=== PATIENT | male | born 1965 | race Caucasian/White ===

== ENCOUNTER 2016-10-14 08:31 | Day surgery (SDC) | payer BC, OTHER ==
[2016-10-12 13:06] VITALS: BMI 44.0
[~2016-10-14] VITALS: Ht 180.3 cm; Wt 142.7 kg
[~2016-10-14 08:31] MED LIST: APIX1TAB3 PO; ASPI-435 PO; CLINDAMYCIN IV 900 MG in DEXTROSE 5% ADD-VANTAGE 100ML 100 ML IV SCH; HYDR200T5 PO; IRON5TAB PO; ISOS30TA3 PO; LACTATED RINGER'S 1000ML 1,000 ML IV SCH; LISI-729 PO; METO50TA16 PO; MULT-506 PO; NTRGSL/4 UT; SIMV40TA2 PO
[2016-10-14 09:06] VITALS: BP 161/98; PULSE 85; TEMP 36.9; O2SAT 97; Ht 180.3 cm; Wt 142.7 kg
--- NOTE | 2016-10-14 09:20 | History and Physical ---
History & Physical Date Oct 14, 2016. History of Present Illness The patient is a 51 year old male with h/o colon cancer- for access port Past Medical/Surgical History h/o CVA, anticoagulation, Htn, CAD, Lupus, coronary stent placement Additional History Endocrine Disorder: No Kidney Disease: No Hypertension: Yes Heart Disease: Yes Bleeding Tendencies: Yes Allergies Coded Allergies: Penicillins (Verified Allergy, Mild, TONGUE AND MOUTH SWELLS, 10/14/16) Home Medications Scheduled Apixaban (Eliquis), 5 MG PO BID Aspirin (Aspirin 81), 81 MG PO QAM Hydroxychloroquine Sulfate (Plaquenil), 200 MG PO BID Iron-Vitamin C (Iron 100/C), 1 TAB PO QPM Isosorbide Mononitrate Ext Rel (Imdur Ext Rel), 30 MG PO QAM Lisinopril (Zestril), 5 MG PO BID Metoprolol Tartrate (Lopressor) (Lopressor), 50 MG PO BID Multivitamin (Multivitamin), 1 TAB PO QAM Nitroglycerin (Nitrostat), 0.4 MG UT PRN Simvastatin (Zocor), 40 MG PO QPM Physical Examination Skin: warm/dry Eyes: normal inspection Head: normocephalic Respiratory/Chest: no respiratory distress Cardiovascular: regular rate, rhythm Extremities: normal inspection Neurologic/Psych: alert Diagnosis colon cancer- for access port Plan of Treatment port placement
[2016-10-14] MEDS ORDERED: PROPOFOL IV EMULSION 10 MG/ML 20 ML VIAL IV ONE (10:11)
[2016-10-14] MEDS ORDERED: FENTANYL CITRATE INJ 50 MCG/1 ML 2 ML VIAL ONE (10:11)
[2016-10-14] MEDS ORDERED: MIDAZOLAM HCL 1 MG/ML 2ML VIAL ONE ×3 (10:11→11:32)
[2016-10-14] MEDS ORDERED: HYDR-5688 PO (11:33)
--- NOTE | 2016-10-14 11:35 | Discharge Instructions ---
Discharge Instructions Visit Reason for Visit: Colon Cancer Discharge Discharge Diagnosis / Problem: A-port Discharge Goals Goal(s): Improve disease control Activity Recommendations Activity Limitations: per Instructions/Follow-up section Shower/Bathe: tomorrow Driving or Machine Use: do not drive if you have taken [place] Anesthesia . Post Anesthesia Instructions: If you have had General Anesthesia or IV Sedation: * Do not drive today. * Resume driving when surgeon permits. * Do not make important decisions or sign legal documents today. * Call surgeon for: 1. Temperature elevations greater than 101 degrees F. 2. Uncontrollable pain. 3. Excessive bleeding. 4. Persistent nausea and vomiting. 5. Medication intolerance (nausea, vomiting or rash). * For nausea and vomiting use only clear liquids such as: tea, soda, bouillon until nausea subsides, then gradually increase diet as tolerated. * If you have any concerns or questions, call your surgeon's office. If physician is unavailable and it is an emergency, call 911 or go to the nearest emergency room. . Instructions / Follow-Up Instructions / Follow-Up Dr. Simons's office in 2 weeks for suture removal Restart Eliquis on Wednesday Diet Recommendations Recommended Home Diet: no limitations Pending Studies Studies pending at discharge: no Medical Emergencies . Who to Call and When: Medical Emergencies: If at any time you feel your situation is an emergency, please call 911 immediately. . Non-Emergent Contact Non-Emergency issues call your: Surgeon Call Non-Emergent contact if: you have a fever, temperature is above 101.5, wound has increased redness, wound has increased pain . . "Provider Documentation" section prepared by Gage Alonzo.
[2016-10-14] MEDS ORDERED: LACTATED RINGER'S 1000ML 1,000 ML IV PRN (11:38)
[2016-10-14] MEDS ORDERED: ONDANSETRON INJ 2 MG/ML 2 ML VIAL IV PRN ×2 (11:45→12:00)
[2016-10-14] MEDS ORDERED: FENTANYL CITRATE INJ 50 MCG/1 ML 2 ML VIAL IV PRN (11:45)
[2016-10-14] MEDS ORDERED: LACTATED RINGER'S 1000ML 1,000 ML IV SCH (11:57)
[2016-10-14] MEDS ORDERED: MoRPHine SULFATE 2 MG/ML CARP IV PRN (12:00)
[2016-10-14] MEDS ORDERED: HYDROCODONE/ACETAMOPHEN 5/325MG TAB PO PRN ×3 (12:00→12:30)
[2016-10-14] MEDS ORDERED: CEFAZOLIN SOD 1 GM VIAL IRRIG ONE (12:04)
[2016-10-14] MEDS ORDERED: HEPARIN SOD (PORCINE) 1000 UNIT/ML 10 ML VIAL FLUSH ONE (12:04)
[2016-10-14] MEDS ORDERED: LIDOCAINE HCL 1% 20 ML VIAL INJ ONE (12:04)
--- NOTE | 2016-10-14 12:20 | [facility] Operative Report ---
Operative Report Operative Date Oct 14, 2016. Pre-Operative Diagnosis History of Colon Cancer Post-Operative Diagnosis same Procedure(s) Performed port Surgeon Dr. Faustino Simons Director Electronics Surgeon(s) [place] Student Estimated Blood Loss 10mL Findings placed via Lt cephalic vein Specimens None, per Surgeon Anesthesia local/ sedation Complication(s) None Disposition Recovery Room / PACU I attest to the content of the Intraoperative Record and any orders documented therein. Any exceptions are noted below.
--- NOTE | 2016-10-14 12:35 | Anesthesiology Progress Note ---
Anesthesia Post Op Note Date & Time Oct 14, 2016 at 12:35 Vital Signs Pain Intensity: 0 Vital Signs Past 12 Hours Date Time Temp Pulse Resp B/P Pulse Ox O2 Delivery O2 Flow Rate FiO2 10/14/16 12:25 76 18 107/72 94 Room Air 10/14/16 12:17 36.3 75 18 115/67 96 Room Air 10/14/16 09:06 36.9 85 17 161/98 97 Room Air Notes Mental Status: alert / awake / arousable, participated in evaluation Pt Amnestic to Procedure: Yes Nausea / Vomiting: adequately controlled Pain: adequately controlled Airway Patency, RR, SpO2: stable & adequate BP & HR: stable & adequate Hydration State: stable & adequate Anesthetic Complications: no major complications apparent
--- NOTE | 2016-10-14 12:42 | DIAGNOSTIC IMAGING REPORT ---
CHEST ONE VIEW PORTABLE CLINICAL HISTORY: Port placement. COMPARISON STUDY: No previous studies for comparison. FINDINGS: No pneumothorax is identified. The tip of the left subclavian Eeupnx-k-Ghzn projects over the distal SVC. Catheter appears intact. There is moderate elevation of the right hemidiaphragm. There is borderline cardiomegaly. Pulmonary vascularity is normal. IMPRESSION: No pneumothorax following placement of a left subclavian Cvnafz-t-Fzgu. Electronically signed by: Santiago De Luna M.D. 10/14/2016 12:40 PM
[2016-10-14 12:45] VITALS: BP 136/65; PULSE 76; TEMP 36.9; O2SAT 99
--- NOTE | 2016-10-14 13:09 | OPERATIVE REPORT ---
DATE OF OPERATION: 10/14/2016 NAME OF OPERATION: Infusaport placement. PREOPERATIVE DIAGNOSIS: Colon cancer. POSTOPERATIVE DIAGNOSIS: Same. STAFF SURGEON: Dr. Simons. ANESTHESIA: 1% plain lidocaine with sedation. PROCEDURE: The patient was brought into the operating room and placed on the operating table in a supine position. His chest was prepped and draped in usual fashion. Skin and subcutaneous tissue over the left deltopectoral groove were anesthetized. Incision made, carrying dissection down identifying the cephalic vein which was ligated distally. It was then opened. A catheter was then passed into the superior vena cava under fluoroscopy. It was aspirated and flushed with heparinized solution. A pocket was fashioned in the chest wall. The port was attached to the catheter, placed into the pocket and secured to the chest wall using 3-0 Prolene suture. The port had been aspirated and flushed with heparinized solution. The wound was irrigated with antibiotic solution. Then the subcutaneous tissue reapproximated using 2-0 plain catgut suture, then the skin reapproximated using 4-0 nylon suture. The patient was transferred to recovery room in stable condition. I attest to the content of the Intraoperative Record and any orders documented therein. Any exceptio ns are noted below.
[2016-10-14 13:18] VITALS: BP 112/68; PULSE 72; TEMP 36.9; O2SAT 95
== END 2016-10-14 13:25 | disposition home or self-care (01) ==
LOC: C.ACU 08:31
PROVIDERS: ATTEND Surgery
DX: C18.9 Malignant neoplasm of colon, unspecified (principal); Z86.73 Personal history of transient ischemic attack (TIA), and cerebral infarction without residual deficits; I10 Essential (primary) hypertension; I25.10 Atherosclerotic heart disease of native coronary artery without angina pectoris; Z95.5 Presence of coronary angioplasty implant and graft; Z88.0 Allergy status to penicillin

== ENCOUNTER → 2016-10-28 | Outpatient (CLI) | payer BC ==
[~2016-10-28] MED LIST changes: -APIX1TAB3 PO; -CLINDAMYCIN IV 900 MG in DEXTROSE 5% ADD-VANTAGE 100ML 100 ML IV SCH; +HYDR-5688 PO; -LACTATED RINGER'S 1000ML 1,000 ML IV SCH
[2016-10-28 13:07] LABS: BASO ABS # 0.06 K/uL (0-0.2); COMPLETE YES; EOS % 4.7 %; HEMATOCRIT 40.4 % (42-52); IG% 0.3 %; LYMPH % 11.7 %; LYMPH ABS # 0.68 K/uL (1.2-3.4); MEAN CELL VOLUME 81.8 fL (80-100); MEAN CORPUSCULAR HEMOGLOBIN 27.1 pg (25-34); MEAN CORPUSCULAR HGB CONC 33.2 g/dl (32-36); MEAN PLATELET VOLUME 9.7 fL (7.4-10.4); MONO % 10.7 %; NEUT % 71.6 %; PLATELET COUNT 114 K/uL (130-400); RED BLOOD COUNT 4.94 M/uL (4.7-6.1)
[2016-10-28 13:31] LABS: ALT/SGPT 37 U/L (12-78); AST/SGOT 25 U/L (15-37); BLOOD UREA NITROGEN 18 mg/dl (7-18); BUN/CREATININE RATIO 13.7 (10-20); CALCIUM 8.8 mg/dl (8.5-10.1); CARBON DIOXIDE 27 mmol/L (21-32); CHLORIDE 105 mmol/L (98-107); GLUCOSE 109 mg/dl (70-99); SODIUM 141 mmol/L (136-145)
[2016-10-28 13:33] LABS: ALB/GLOB RATIO 1.1 (0.9-2); ALKALINE PHOSPHATASE 77 U/L (45-117)
== END | disposition home or self-care (01) ==
LOC: C.LABMFLN 08:34
PROVIDERS: ATTEND Internal Medicine Hematology & Oncology
DX: C18.2 Malignant neoplasm of ascending colon (principal)

== ENCOUNTER → 2016-11-11 | Outpatient (CLI) | payer BC, OTHER ==
[2016-11-11 13:35] LABS: ALT/SGPT 43 U/L (12-78); BLOOD UREA NITROGEN 15 mg/dl (7-18); BUN/CREATININE RATIO 12.8 (10-20); CALCIUM 8.6 mg/dl (8.5-10.1); CARBON DIOXIDE 25 mmol/L (21-32); CHLORIDE 107 mmol/L (98-107); GLUCOSE 103 mg/dl (70-99); POTASSIUM 3.9 mmol/L (3.5-5.1); SODIUM 142 mmol/L (136-145)
[2016-11-11 13:38] LABS: ALB/GLOB RATIO 0.9 (0.9-2); ALKALINE PHOSPHATASE 79 U/L (45-117); AST/SGOT 40 U/L (15-37)
[2016-11-11 13:41] LABS: HEMATOCRIT 40.9 % (42-52); MEAN CELL VOLUME 82.6 fL (80-100); MEAN CORPUSCULAR HEMOGLOBIN 27.5 pg (25-34); MEAN CORPUSCULAR HGB CONC 33.3 g/dl (32-36); RED BLOOD COUNT 4.95 M/uL (4.7-6.1); WHITE BLOOD COUNT 4.33 K/uL (4.8-10.8)
[2016-11-11 13:50] LABS: URINE PROTIEN/CREAT RATIO 0.2 (0-0.2)
[2016-11-11 13:52] LABS: URINE APPEARANCE CLOUDY (CLEAR); URINE BILIRUBIN NEG (NEG); URINE COLOR DK YELLOW; URINE NITRITE NEG (NEG); URINE SPECIFIC GRAVITY 1.022 (1.000-1.030); UROBILINOGEN NEG (NEG)
[2016-11-11 14:01] LABS: MANUAL MICROSCOPIC REQUIRED? NO; REVIEW REQ? NO
[2016-11-11 14:16] LABS: MEAN PLATELET VOLUME 10.1 fL (7.4-10.4); PLATELET COUNT 90 K/uL (130-400)
[2016-11-11 14:17] LABS: BASO % 1.6 %; BASO ABS # 0.07 K/uL (0-0.2); COMPLETE YES; IG% 0.2 %; LYMPH % 10.9 %; LYMPH ABS # 0.47 K/uL (1.2-3.4); MONO % 12.5 %; NEUT % 71.8 %; PLT ESTIMATE DECREASED
== END | disposition home or self-care (01) ==
LOC: C.LABMFLN 14:05
PROVIDERS: ATTEND Nurse Practitioner
DX: C18.2 Malignant neoplasm of ascending colon (principal); N17.9 Acute kidney failure, unspecified; D68.61 Antiphospholipid syndrome

== ENCOUNTER → 2017-01-20 | Outpatient (CLI) | payer BC ==
[2017-01-20 12:57] LABS: BASO % 1.3 %; BASO ABS # 0.06 K/uL (0-0.2); COMPLETE YES; IG% 0.4 %; LYMPH % 14.7 %; LYMPH ABS # 0.69 K/uL (1.2-3.4); MEAN CELL VOLUME 89.9 fL (80-100); MEAN CORPUSCULAR HEMOGLOBIN 30.5 pg (25-34); MEAN CORPUSCULAR HGB CONC 33.9 g/dl (32-36); MONO % 17.2 %; NEUT % 63.4 %; PLATELET COUNT 115 K/uL (130-400); RED BLOOD COUNT 4.56 M/uL (4.7-6.1)
[2017-01-20 14:07] LABS: ALT/SGPT 41 U/L (12-78); BLOOD UREA NITROGEN 16 mg/dl (7-18); BUN/CREATININE RATIO 13.7 (10-20); CARBON DIOXIDE 31 mmol/L (21-32); CHLORIDE 107 mmol/L (98-107); GLUCOSE 109 mg/dl (70-99); POTASSIUM 4.2 mmol/L (3.5-5.1); SODIUM 143 mmol/L (136-145)
[2017-01-20 14:09] LABS: ALKALINE PHOSPHATASE 114 U/L (45-117); AST/SGOT 47 U/L (15-37)
[2017-01-20 14:25] LABS: CALCIUM 9.1 mg/dl (8.5-10.1)
== END | disposition home or self-care (01) ==
LOC: C.LABMFLN 09:11
PROVIDERS: ATTEND Internal Medicine Hematology & Oncology
DX: C18.2 Malignant neoplasm of ascending colon (principal)

== ENCOUNTER → 2017-03-01 | Outpatient (CLI) | payer BC ==
[2017-03-01 13:18] LABS: BASO % 1.7 %; BASO ABS # 0.06 K/uL (0-0.2); COMPLETE YES; EOS % 3.6 %; HEMATOCRIT 39.3 % (42-52); IG% 0.3 %; LYMPH % 16.5 %; MEAN CELL VOLUME 97.8 fL (80-100); MEAN CORPUSCULAR HEMOGLOBIN 33.6 pg (25-34); MEAN CORPUSCULAR HGB CONC 34.4 g/dl (32-36); MEAN PLATELET VOLUME 10.2 fL (7.4-10.4); MONO % 15.7 %; NEUT % 62.2 %; PLATELET COUNT 105 K/uL (130-400); RED BLOOD COUNT 4.02 M/uL (4.7-6.1); WHITE BLOOD COUNT 3.63 K/uL (4.8-10.8)
== END | disposition home or self-care (01) ==
LOC: C.LABMFLN 10:59
PROVIDERS: ATTEND Internal Medicine Hematology & Oncology
DX: C18.2 Malignant neoplasm of ascending colon (principal)

== ENCOUNTER → 2017-03-17 | Outpatient (CLI) | payer BC ==
[2017-03-17 14:37] LABS: URINE PROTIEN/CREAT RATIO 0.1 (0-0.2); URINE TOTAL PROTEIN 13.3 mg/dl (0-11.9)
--- NOTE | 2017-04-02 12:08 | CODING QUERY MEDICAL NECESSITY ---
SUPPORTING DIAGNOSIS NEEDED Dr. Mora, A supporting diagnosis is required for the test/procedure performed on this patient in order for us to be reimbursed by the patient's insurance. Please provide a supporting diagnosis for the following test/procedure listed below next to the test name along with your signature. *If there is no additional diagnosis for this patient that would support the following test/procedure please document that below next to the test/procedure. Test(s)/Procedure(s) that require a supporting diagnosis: * ([id number]) VITAMIN D ASSAY DIAGNOSIS: DATE OF SERVICE: 03/29/17 Provider Signature: Date: Thank you Gage Ruelas [place] Information Management Once completed, please kindly fax back to [phone] For questions please call [phone]
== END | disposition home or self-care (01) ==
LOC: C.LABMFLN 11:03
PROVIDERS: ATTEND Internal Medicine
DX: N28.9 Disorder of kidney and ureter, unspecified (principal); D68.61 Antiphospholipid syndrome; N18.3 Chronic kidney disease, stage 3 (moderate)

== ENCOUNTER → 2017-04-16 | Outpatient (CLI) | payer BC ==
[2017-04-16 13:15] LABS: BASO % 1.4 %; BASO ABS # 0.08 K/uL (0-0.2); COMPLETE YES; EOS % 3.3 %; HEMATOCRIT 44.1 % (42-52); IG% 0.7 %; LYMPH ABS # 0.69 K/uL (1.2-3.4); MEAN CORPUSCULAR HEMOGLOBIN 33.6 pg (25-34); MEAN CORPUSCULAR HGB CONC 33.6 g/dl (32-36); MEAN PLATELET VOLUME 10.1 fL (7.4-10.4); NEUT % 71.6 %; PLATELET COUNT 127 K/uL (130-400); RED BLOOD COUNT 4.41 M/uL (4.7-6.1); WHITE BLOOD COUNT 5.75 K/uL (4.8-10.8)
[2017-04-16 13:39] LABS: ALT/SGPT 35 U/L (12-78); BLOOD UREA NITROGEN 13 mg/dl (7-18); CALCIUM 9.1 mg/dl (8.5-10.1); CARBON DIOXIDE 25 mmol/L (21-32); CHLORIDE 107 mmol/L (98-107); GLUCOSE 119 mg/dl (70-99); POTASSIUM 3.9 mmol/L (3.5-5.1); SODIUM 140 mmol/L (136-145)
[2017-04-16 13:42] LABS: ALB/GLOB RATIO 0.9 (0.9-2); ALKALINE PHOSPHATASE 125 U/L (45-117); AST/SGOT 45 U/L (15-37)
== END | disposition home or self-care (01) ==
LOC: C.LABMFLN 08:18
PROVIDERS: ATTEND Internal Medicine Hematology & Oncology
DX: C18.2 Malignant neoplasm of ascending colon (principal)

== ENCOUNTER → 2017-04-20 | Outpatient (CLI) | payer BC ==
[~2017-04-20] MED LIST changes: -HYDR-5688 PO; +OPTIRAY 320 IV PRN
--- NOTE | 2017-04-20 09:25 | DIAGNOSTIC IMAGING REPORT ---
(CHEST) THORAX WITH HISTORY:51 yearsMalehistory of colon cancer. Follow-up exam. COMPARISON: Portable chest radiograph 10/14/2016 TECHNIQUE: Multiple axial CT images of the chest were obtained following the intravenous administration of 93 mL Optiray 320. FINDINGS: No focal thyroid nodule. No pathologic adenopathy of the chest is identified. There are some nonspecific mildly prominent aortopulmonary collaterals seen at the level of the brittany. Heart size is normal with coronary arterial calcifications. The thoracic aorta appears normal without aneurysm or dissection. Left subclavian Alxstd-d-Ersv catheter terminates in the distal SVC just proximal to the superior cavoatrial junction. No pneumothorax, pleural effusion or focal airspace consolidation. There is minimal dependent atelectasis. There is a 5 mm noncalcified pulmonary nodule of the right middle lobe seen on image 33 of the axial series. 3 mm noncalcified pulmonary nodule is present within the dependent right lower lobe on image 41. Pleural-based 4 mm noncalcified pulmonary nodules are seen within the left lower lobe. Central airways are patent. Spleen is enlarged measuring up to 21 cm in greatest dimension. Note is made of fatty infiltration of the liver. Colonic diverticuli are seen. No suspicious lytic or blastic bony lesions identified. IMPRESSION: 1. No acute cardiopulmonary abnormality. No pathologic adenopathy of the chest. 2. Several scattered noncalcified pulmonary nodules of the bilateral lungs as above measure up to 5 mm. Follow-up according to the guidelines below recommended. 3. Splenomegaly. 4. Left subclavian Cdcnbr-y-Lwbr catheter terminates in the distal SVC just proximal to the superior cavoatrial junction. Please refer to below summary of Fleischner criteria recommendations for follow-up of incidental CT nodules (Amelia Treadwell, Guidelines for management of small pulmonary nodules detected on CT scans: A statement from the Fleischner Society, Radiology 237: [phone].) SOLID NODULES Solitary nodule size: <6 mm * Low risk patients: no follow-up needed * high risk patients: optional CT at 12 months Solitary nodule size: 6-8 mm * Low risk patients: follow-up at 6-12 months, then consider further follow-up at 18-24 months * high risk patients: initial follow-up CT at 6-12 months and then at 18-24 months if no change Solitary nodule size: >8 mm * either low or high risk patients - consider follow-up CT at 3 months, and/or CT-PET, and/or biopsy Multiple nodules size: <6 mm * Low risk patients: no routine follow-up * high risk patients: optional CT at 12 months Multiple nodules size: 6-8 mm * Low risk patients: follow-up at 3-6 months, then consider further follow-up at 18-24 months * high risk patients: follow-up at 3-6 months, then at 18-24 months if no change Multiple nodules size: >8 mm * Low risk patients: follow-up at 3-6 months, then consider further follow-up at 18-24 months * high risk patients: follow-up at 3-6 months, then at 18-24 months if no change Note: newly detected indeterminate nodule in persons 35 years of age or older. * Low risk patients: minimal or absent history of smoking and/or other known risk factors * high risk patients: history of smoking or of other known risk factors (e.g. first degree relative with lung cancer, or exposure to asbestos, radon, uranium) * if a nodule up to 8 mm is partly solid or is ground glass further follow-up is required after 24 months to exclude possible slow growing adenocarcinoma (ETTA) SUBSOLID NODULES Solitary pure ground-glass nodule * nodule size <6 mm - no CT follow-up required * nodule size >=6 mm - follow-up CT at 6-12 months, then every 2 years until 5 years Solitary part-solid nodule * nodule size <6 mm - no CT follow-up required * nodule size >=6 mm - follow-up CT at 3-6 months. If unchanged, and solid component remains <6 mm, then annual follow-up for 5 years Multiple subsolid nodules * nodule size <6 mm - follow-up CT at 3-6 months, consider further follow-up at 2 and 4 years if stable * nodule size >=6 mm - follow-up CT at 3-6 months, subsequent management based on the most suspicious nodule(s) The above report was generated using voice recognition software. It may contain grammatical, syntax or spelling errors. Electronically signed by: Arthur Escamilla 04/20/2017 9:24 AM Dictated Date/Time: 04/20/2017 9:18 AM
--- NOTE | 2017-04-20 09:32 | DIAGNOSTIC IMAGING REPORT ---
CT SCAN OF THE ABDOMEN AND PELVIS WITH IV CONTRAST CLINICAL HISTORY: Colon cancer. COMPARISON STUDY: No priors. TECHNIQUE: Following the IV administration of 93 cc of Optiray 320, CT scan of the abdomen and pelvis is performed from the lung bases to the proximal femora. Images are reviewed in the axial, sagittal, and coronal planes. IV contrast was administered without complication. Automated dose control exposure was utilized. FINDINGS: Lung bases: The heart is top normal in size and without pericardial effusion. There are coronary artery calcifications. No airspace consolidation or pleural effusion is seen. There is a 3 mm right lower lobe pulmonary nodule seen on image #48. A 3 mm right middle lobe pulmonary nodule is seen on image #10. 3 mm pleural-based nodule in the left lower lobe as seen on images #68 and #69. Liver: The contrast-enhanced liver is normal in size, contour, and attenuation. There is no intrahepatic biliary ductal dilatation. The hepatic veins and portal veins are patent. Gallbladder: Unremarkable. Spleen: The spleen is markedly enlarged measuring 20.6 cm in length. Pancreas: Unremarkable. Adrenal glands: Unremarkable. Kidneys: The contrast enhanced kidneys are normal in size and without hydronephrosis. The kidneys enhance symmetrically. Nonobstructing calculi are present in the lower pole the right kidney and measure up to 10 mm. A 10 mm exophytic cyst arises from the interpolar right kidney. Abdominal vasculature: The abdominal aorta is normal in course and caliber. Bowel: There are postoperative changes from partial right colon resection. No bowel obstruction is seen. There is moderate colonic diverticulosis without CT evidence of acute diverticulitis. A structure that likely represents a normal appendix is seen on image #225. Correlation the patient's surgical history be required. Peritoneum: There is no intraperitoneal free air or abdominal ascites. A midline surgical scar is noted. Lymphadenopathy: None. Pelvic viscera: The bladder, prostate, and seminal vesicles are normal as visualized. Skeletal structures: No lytic or blastic lesions are seen. IMPRESSION: 1. There is no evidence of metastatic disease in the abdomen or pelvis. 2. There are postoperative changes from right colon resection. No bowel obstruction is seen. 3. Moderate colonic diverticulosis without CT evidence of acute diverticulitis. 4. Marked splenomegaly. 5. There are scattered pulmonary nodules at the lung bases measuring up to 3 mm. These are indeterminant but of low suspicion and attention at follow-up is recommended. 6. Nonobstructing right renal calculi. 7. Additional findings as above. Electronically signed by: Yao Sihpley M.D. 04/20/2017 9:31 AM Dictated Date/Time: 04/20/2017 9:19 AM
== END | disposition home or self-care (01) ==
LOC: C.CTS 08:28
PROVIDERS: ATTEND Colon & Rectal Surgery
DX: C18.9 Malignant neoplasm of colon, unspecified (principal); K57.92 Diverticulitis of intestine, part unspecified, without perforation or abscess without bleeding; R91.8 Other nonspecific abnormal finding of lung field; N20.0 Calculus of kidney

== ENCOUNTER → 2017-08-16 | Outpatient (CLI) | payer BC ==
[~2017-08-16] MED LIST changes: -OPTIRAY 320 IV PRN
[2017-08-16 12:42] LABS: BASO % 0.6 %; BASO ABS # 0.04 K/uL (0-0.2); COMPLETE YES; EOS % 3.8 %; HEMATOCRIT 43.5 % (42-52); IG% 0.6 %; LYMPH % 13.3 %; LYMPH ABS # 0.85 K/uL (1.2-3.4); MEAN CELL VOLUME 92.9 fL (80-100); MEAN CORPUSCULAR HEMOGLOBIN 31.8 pg (25-34); MEAN CORPUSCULAR HGB CONC 34.3 g/dl (32-36); MEAN PLATELET VOLUME 9.7 fL (7.4-10.4); NEUT % 75.7 %; PLATELET COUNT 148 K/uL (130-400); RED BLOOD COUNT 4.68 M/uL (4.7-6.1); WHITE BLOOD COUNT 6.38 K/uL (4.8-10.8)
[2017-08-16 13:13] LABS: ALT/SGPT 42 U/L (12-78); BLOOD UREA NITROGEN 19 mg/dl (7-18); BUN/CREATININE RATIO 15.7 (10-20); CARBON DIOXIDE 28 mmol/L (21-32); CHLORIDE 108 mmol/L (98-107); CHOLESTEROL 101 mg/dl (0-200); CREATININE 1.19 mg/dl (0.60-1.40); GLUCOSE 104 mg/dl (70-99); POTASSIUM 4.1 mmol/L (3.5-5.1); SODIUM 142 mmol/L (136-145)
[2017-08-16 13:16] LABS: ALB/GLOB RATIO 0.9 (0.9-2); ALKALINE PHOSPHATASE 128 U/L (45-117); AST/SGOT 32 U/L (15-37); HDL CHOLESTEROL 51 mg/dl; LDL CHOLESTEROL CALCULATED 39 mg/dl; TRIGLYCERIDES 56 mg/dl (0-150); VERY LOW DENSITY LIPOPROT CALC 11 mg/dl
== END | disposition home or self-care (01) ==
LOC: C.LABMFLN 07:23
PROVIDERS: ATTEND Internal Medicine Hematology & Oncology
DX: C18.2 Malignant neoplasm of ascending colon (principal); E78.2 Mixed hyperlipidemia; I25.10 Atherosclerotic heart disease of native coronary artery without angina pectoris

== ENCOUNTER → 2017-12-13 | Outpatient (CLI) | payer BC ==
[~2017-12-13] MED LIST changes: +OPTIRAY 320 IV PRN
--- NOTE | 2017-12-13 13:14 | DIAGNOSTIC IMAGING REPORT ---
CHEST CT WITH CONTRAST CT DOSE: 1033.54 mGy.cm HISTORY: Follow-up study in a patient with history of colon cancer. COLON CA TECHNIQUE: Multiaxial CT images of the chest were performed following the intravenous administration of contrast. A dose lowering technique was utilized adhering to the principles of ALARA. COMPARISON: Chest CT 04/20/2017. FINDINGS: No dominant thyroid nodule. No pathologic adenopathy about the chest appear well subclavian Trhnkj-w-Hgmr catheter redemonstrated with distal tip terminating in the SVC just proximal to the superior cavoatrial junction. Coronary arterial disease. Heart is normal in size. Nonspecific prominent aortopulmonary collaterals again noted at the level the brittany. Thoracic aorta is normal in course and caliber without aneurysm or dissection. The opacified pulmonary arterial tree is unremarkable. There is no pneumothorax, pleural effusion or focal airspace consolidation. No new or enlarging pulmonary nodules are identified. There are at least 5 solid noncalcified pulmonary nodules of the lungs bilaterally measuring up to 5 mm which appears unchanged from prior exam. No new suspicious pulmonary nodules or masses identified. Central airways appear to be patent. Minimal dependent subsegmental bibasilar atelectasis. Splenomegaly redemonstrated, 18 cm in length. No acute abnormality of the imaged upper abdomen. Soft tissues are unremarkable. No suspicious lytic or blastic bony lesions to suggest skeletal metastasis. IMPRESSION: 1. No acute intrathoracic abnormality identified. 2. There are at least five solid noncalcified solid pulmonary nodules again seen bilaterally measuring up to 5 mm which appear unchanged from comparison study. No new or enlarging pulmonary nodules are identified. 3. No pathologic adenopathy. 4. Unchanged splenomegaly. Please refer to below summary of Fleischner criteria recommendations for follow-up of incidental CT nodules (Amelia Treadwell, Guidelines for management of small pulmonary nodules detected on CT scans: A statement from the Fleischner Society, Radiology 237: [phone].) SOLID NODULES Multiple nodules size: <6 mm * Low risk patients: no routine follow-up * high risk patients: optional CT at 12 months Note: newly detected indeterminate nodule in persons 35 years of age or older. * Low risk patients: minimal or absent history of smoking and/or other known risk factors * high risk patients: history of smoking or of other known risk factors (e.g. first degree relative with lung cancer, or exposure to asbestos, radon, uranium) * if a nodule up to 8 mm is partly solid or is ground glass further follow-up is required after 24 months to exclude possible slow growing adenocarcinoma (ETTA) The above report was generated using voice recognition software. It may contain grammatical, syntax or spelling errors. Electronically signed by: Arthur Escamilla M.D. 12/13/2017 1:12 PM Dictated Date/Time: 12/13/2017 1:04 PM
== END | disposition home or self-care (01) ==
LOC: C.CTS 12:47
PROVIDERS: ATTEND Internal Medicine Hematology & Oncology
DX: C18.2 Malignant neoplasm of ascending colon (principal); R91.8 Other nonspecific abnormal finding of lung field

== ENCOUNTER → 2017-12-21 | Outpatient (CLI) | payer BC ==
[~2017-12-21] MED LIST changes: -OPTIRAY 320 IV PRN
[2017-12-21 13:07] LABS: ALBUMIN 3.9 gm/dl (3.4-5.0); BLOOD UREA NITROGEN 19 mg/dl (7-18); CALCIUM 8.6 mg/dl (8.5-10.1); CARBON DIOXIDE 27 mmol/L (21-32); CREATININE 1.14 mg/dl (0.60-1.40); GLUCOSE 111 mg/dl (70-99); PHOSPHORUS 3.1 mg/dl (2.5-4.9); SODIUM 137 mmol/L (136-145)
== END | disposition home or self-care (01) ==
LOC: C.LABMFLN 07:59
PROVIDERS: ATTEND Internal Medicine
DX: N18.3 Chronic kidney disease, stage 3 (moderate) (principal)

== ENCOUNTER → 2017-12-28 | Outpatient (CLI) | payer BC ==
[~2017-12-28] MED LIST changes: +APIX1TAB PO
== END | disposition home or self-care (01) ==
LOC: C.CPL 15:33
PROVIDERS: ATTEND Surgery
DX: Z01.810 Encounter for preprocedural cardiovascular examination (principal); C18.2 Malignant neoplasm of ascending colon; I10 Essential (primary) hypertension

== ENCOUNTER → 2018-01-10 | Day surgery (SDC) | payer BC ==
[2018-01-03 15:48] VITALS: BMI 43.0
[~2018-01-10] VITALS: Ht 177.8 cm; Wt 136.4 kg
[~2018-01-10] MED LIST changes: +ATROPINE SULFATE 0.1 MG/ML 5ML SYR IV PRN; +CLINDAMYCIN IV 900 MG in DEXTROSE 5% 50ML IV SCH; +EpHEDrine SULFATE INJ 50 MG/ML AMP IV PRN; +FENTANYL CITRATE INJ 50 MCG/1 ML 2 ML VIAL IV PRN; +FENTANYL CITRATE INJ 50 MCG/1 ML 2 ML VIAL ONE; +HYDR-5688 PO; +HYDROCODONE/ACETAMIN 5/325MG TAB PO PRN; -IRON5TAB PO; +LACTATED RINGER'S 1000ML 1,000 ML IV SCH; +LIDOCAINE HCL 1% 20 ML VIAL ONE; +LIDOCAINE HCL 2% 2 ML VIAL (20MG/ML) ONE; +MIDAZOLAM HCL 1 MG/ML 2ML VIAL ONE; +ONDANSETRON INJ 2 MG/ML 2 ML VIAL IV PRN; +PHENYLEPHRINE 100MCG/ML 5ML SYR IV PRN; +PROPOFOL IV EMULSION 10 MG/ML 20 ML VIAL IV ONE
[2018-01-10 05:40] VITALS: BP 160/92; PULSE 71; TEMP 37.1; O2SAT 96; Ht 177.8 cm; Wt 136.4 kg
--- NOTE | 2018-01-10 06:47 | History & Physical Bridge Note ---
H&P Re-Evaluation Bridge Note: I have examined the patient, reviewed the History & Physical and in the interval since the performance of the History & Physical I have noted the following changes of clinical significance: No changes noted
--- NOTE | 2018-01-10 07:26 | [facility] Operative Report ---
Operative Report Operative Date Jan 10, 2018. Pre-Operative Diagnosis History of colon cancer Post-Operative Diagnosis Same as preop Procedure(s) Performed Removal of A-Port, Left Chest Surgeon Dr. Simons Finish Cleaner Surgeon(s) none Estimated Blood Loss 20 cc Findings port Specimens A: explanted A-port Drains None Anesthesia Type MAC Complication(s) none I attest to the content of the Intraoperative Record and any orders documented therein. Any exceptions are noted below.
--- NOTE | 2018-01-10 07:32 | Discharge Instructions ---
Discharge Instructions Date of Service Jan 10, 2018. Visit Reason for Visit: Colon Cancer, Exhausted Vascular Access Discharge Discharge Diagnosis / Problem: port in place Discharge Goals Goal(s): Decrease discomfort, Improve function, Improve disease control Activity Recommendations Activity Limitations: as noted below Lifting Limitations: gradually increase as tolerated Exercise/Sports Limitations: until after follow-up appointment May Resume Sexual Activity: when tolerated Shower/Bathe: tomorrow Driving or Machine Use: resume 1 day after discharge Anesthesia . Post Anesthesia Instructions: If you have had General Anesthesia or IV Sedation: * Do not drive today. * Resume driving when surgeon permits. * Do not make important decisions or sign legal documents today. * Call surgeon for: 1. Temperature elevations greater than 101 degrees F. 2. Uncontrollable pain. 3. Excessive bleeding. 4. Persistent nausea and vomiting. 5. Medication intolerance (nausea, vomiting or rash). * For nausea and vomiting use only clear liquids such as: tea, soda, bouillon until nausea subsides, then gradually increase diet as tolerated. * If you have any concerns or questions, call your surgeon's office. If physician is unavailable and it is an emergency, call 911 or go to the nearest emergency room. . Instructions / Follow-Up Instructions / Follow-Up SPECIAL CARE INSTRUCTIONS: * Cover incisions and change daily for comfort/drainage. * Begin Eliquis tomorrow 01/11 * May use ibuprofen for pain as tolerated. * Expect some swelling and bruising. Call your doctor if: * Temperature above 101 degrees * Pain not relieved by pain medicine ordered * There is increased drainage or redness from any incision * You have any unanswered questions or concerns [phone]. FOLLOW UP VISIT: If not already scheduled, please call the office for a follow-up visit. for 2 weeks- suture removal OFFICE PHONE NUMBER: Dr. Simons Office Diet Recommendations Recommended Home Diet: resume previous diet Procedures Procedures Performed: Removal of A-Port, Left Chest Pending Studies Studies pending at discharge: no Medical Emergencies . Who to Call and When: Medical Emergencies: If at any time you feel your situation is an emergency, please call 911 immediately. . Non-Emergent Contact Non-Emergency issues call your: Primary Care Provider, Surgeon . . "Provider Documentation" section prepared by Faustino Simons. .
--- NOTE | 2018-01-10 08:03 | OPERATIVE REPORT ---
DATE OF OPERATION: 01/10/2018 NAME OF OPERATION: Port removal. PREOPERATIVE DIAGNOSES: Colon cancer and port in place. POSTOPERATIVE DIAGNOSIS: Same. STAFF SURGEON: Faustino Simons MD. ANESTHESIA: 1% plain lidocaine with sedation. DESCRIPTION OF PROCEDURE: The patient was brought in the operating room and placed on the operating table in supine position. His left upper chest was prepped and draped in the usual fashion. 1% plain lidocaine was used to anesthetize the skin and subcutaneous tissue. Incision made carrying dissection down identifying the port which was well incorporated. It was dissected from surrounding tissue and then removed. The catheter was then removed. The tunnel oversewn using 2-0 chromic suture. Deep tissue was reapproximated using 2-0 plain suture and then the skin reapproximated using interrupted 4-0 nylon suture. Dressing applied and patient transferred to recovery room in stable condition. I attest to the content of the Intraoperative Record and any orders documented therein. Any exception s are noted below.
--- NOTE | 2018-01-10 08:03 | Anesthesiology Progress Note ---
Anesthesia Post Op Note Date & Time Jan 10, 2018 at 08:02 Vital Signs Pain Intensity: 0 Vital Signs Past 12 Hours Date Time Temp Pulse Resp B/P (MAP) Pulse Ox O2 Delivery O2 Flow Rate FiO2 01/10/18 07:54 36.2 69 16 106/65 94 Room Air 01/10/18 07:44 74 17 114/62 93 Room Air 01/10/18 07:34 80 16 109/64 95 Room Air 01/10/18 07:24 36.2 76 16 119/68 95 Room Air 01/10/18 05:40 37.1 71 20 160/92 (114) 96 Room Air Notes Mental Status: alert / awake / arousable, participated in evaluation Pt Amnestic to Procedure: Yes Nausea / Vomiting: adequately controlled Pain: adequately controlled Airway Patency, RR, SpO2: stable & adequate BP & HR: stable & adequate Hydration State: stable & adequate Anesthetic Complications: no major complications apparent
[2018-01-10 08:05] VITALS: BP 120/66; PULSE 67; TEMP 36.5; O2SAT 94
[2018-01-10 08:30] VITALS: BP 124/66; PULSE 66; TEMP 36.5; O2SAT 95
== END | disposition home or self-care (01) ==
LOC: C.ACU 05:15
PROVIDERS: ATTEND Surgery
DX: Z95.828 Presence of other vascular implants and grafts (principal); C18.9 Malignant neoplasm of colon, unspecified; I25.10 Atherosclerotic heart disease of native coronary artery without angina pectoris; I10 Essential (primary) hypertension; I25.2 Old myocardial infarction; E66.9 Obesity, unspecified; Z68.41 Body mass index [BMI] 40.0-44.9, adult; Z86.711 Personal history of pulmonary embolism; Z86.718 Personal history of other venous thrombosis and embolism; Z86.73 Personal history of transient ischemic attack (TIA), and cerebral infarction without residual deficits; Z79.82 Long term (current) use of aspirin; Z88.0 Allergy status to penicillin; Z98.61 Coronary angioplasty status; Z82.49 Family history of ischemic heart disease and other diseases of the circulatory system; Z83.3 Family history of diabetes mellitus